=== PATIENT | male | born 1985 | race African-American/Black ===

== ENCOUNTER 2017-04-08 02:44 | Emergency (ER) | payer OTHER ==
[~2017-04-08] VITALS: Ht 175.3 cm; Wt 68.0 kg
[2017-04-08] MEDS ORDERED: NORCO 5-325 TA1 EACH PO (02:55)
[2017-04-08] MEDS ORDERED: IBUPROFEN 200200 M1 PO (02:55)
[2017-04-08] MEDS ORDERED: SENOKOT-S1 TA1 PO (02:55)
[2017-04-08] MEDS ORDERED: FLEXERIL PO (04:54)
[2017-04-08] MEDS ORDERED: IBUPROFEN 800800 M1 PO (04:54)
[2017-04-08] MEDS ORDERED: PREDNISONE 10 M10 M1 PO (04:54)
[2017-04-08 05:19] VITALS: BP 133/74
== END 2017-04-08 05:22 | disposition home or self-care (01) ==
LOC: ER 02:44
DX: R51 Headache (principal); I10 Essential (primary) hypertension; F17.210 Nicotine dependence, cigarettes, uncomplicated; F10.99 Alcohol use, unspecified with unspecified alcohol-induced disorder; F12.10 Cannabis abuse, uncomplicated